=== PATIENT | female | born 1985 | race Caucasian/White ===

== ENCOUNTER 2018-10-12 14:33 | Emergency (ER) | payer OTHER ==
[~2018-10-12] VITALS: Ht 160 cm; Wt 57.2 kg
[~2018-10-12 14:33] MED LIST: DIPH25CA
[2018-10-12 14:36] VITALS: BP 130/88
--- NOTE | 2018-10-12 14:46 | NUR ---
PATIENT PRESENTS TO ED WITH SUDDEN ONSET OF MIGRAINE THIS MORNING---N/V AND LIGHT SENSITIVITY PRESSURE TYPE HEADACHE---UNRELIEVED BY MIGRAINE MEDICATION FULL CLEAR SPEECH, DENIES RECENT INJURY SKIN IS PINK/WARM/DRY; AAOX4 WITH EVEN AND STEADY GAIT; LUNGS CLEAR BL; HR EVEN AND REGULAR; PT DENIES ANY FEVER, CP, SOB, OR COUGH AT THIS TIME; PATIENT STATES PAIN OF 10/10 AT THIS TIME; VSS; PATIENT POSITIONED FOR COMFORT; HOB ELEVATED; BEDRAILS UP X2; BED DOWN. ER MD MADE AWARE OF PT STATUS.
[2018-10-12] MEDS ORDERED: diphenhydrAMINE 50 MG/ML VIAL IVP ONE (14:50)
[2018-10-12] MEDS ORDERED: KETOROLAC 30 MG/ML VIAL IVP ONE (14:50)
[2018-10-12] MEDS ORDERED: METOCLOPRAMIDE 10 MG/2 ML INJ VIAL IVP ONE (14:50)
[2018-10-12] MEDS ORDERED: NACL 0.9% 1,000 ML IV ONE (14:50)
[2018-10-12 15:56] VITALS: BP 125/78
--- NOTE | 2018-10-12 15:56 | NUR ---
Patient discharged with v/s stable. Written and verbal after care instructions given and explained. Patient alert, oriented and verbalized understanding of instructions. Ambulatory with steady gait. All questions addressed prior to discharge. ID band removed. Patient advised to follow up with PMD. Rx of REGLAN given. Patient educated on indication of medication including possible reaction and side effects. Opportunity to ask questions provided and answered.
== END 2018-10-12 15:56 | disposition home or self-care (01) ==
LOC: MED 14:33
DX: G43.909 Migraine, unspecified, not intractable, without status migrainosus (principal); Z79.899 Other long term (current) drug therapy
CPT/HCPCS: 81002; 81025; 96361; 96374; 96375; 99283; J1200; J1885; J2765; J7030

== ENCOUNTER 2020-11-02 07:10 | Day surgery (SDC) | payer OTHER, SELFPAY ==
[~2020-11-02] VITALS: Ht 154.9 cm; Wt 62.6 kg
[2020-11-02] MEDS ORDERED: LIDOCAINE 2% 100 MG/5 ML UJET TP ONE (08:50)
[2020-11-02] MEDS ORDERED: fentaNYL citrate 0.05 MG/ML VIAL ONE (08:50)
[2020-11-02] MEDS ORDERED: MIDAZOLAM 5 MG/5 ML VIAL ONE (08:50)
[2020-11-02] MEDS ORDERED: diphenhydrAMINE 50 MG/ML VIAL ONE (08:50)
[2020-11-02] MEDS ORDERED: fentaNYL citrate 0.05 MG/ML VIAL IVP ONE (14:50)
[2020-11-02] MEDS ORDERED: MIDAZOLAM 5 MG/5 ML VIAL IV ONE (14:55)
== END 2020-11-02 11:30 | disposition home or self-care (01) ==
LOC: MDS 07:10 → MMU 07:12 → MDS 11:30
PROVIDERS: ATTEND Internal Medicine Gastroenterology
DX: K62.5 Hemorrhage of anus and rectum (principal); K63.5 Polyp of colon; K59.00 Constipation, unspecified; Z98.82 Breast implant status; Z79.899 Other long term (current) drug therapy
CPT/HCPCS: 45385; 81025; 87426; 88305; J2250; J3010; J1200